=== PATIENT | male | born 1935 | race Caucasian/White ===

== ENCOUNTER 2016-10-21 20:21 | Emergency (ER) | payer OTHER, MEDICARE ==
[~2016-10-21] VITALS: Ht 177.8 cm; Wt 79.9 kg
[~2016-10-21 20:21] MED LIST: ASMANEX TW200 MICRO1 IH; ATENOLOL25 MG PO; AZITHROMYCIN500 M1 PO; BENZONATATE100 MG PO; BUDESONIDE0.5 MG/2 M IH; DUONEB 2.5-0.5 M3 ML IH; HYDROCHLOROTH12.5 M3 PO; HYDROCHLOROTHIA25 MG PO; LASIX20 MG PO; LATANOPROST2.5 ML BOTH EYES; LEVAQUIN500 MG PO; LEVOFLOXACIN750 MG PO; LISINOPRIL10 MG PO; METOLAZONE5 MG PO; MIRALAX17 GM PO; MIRALAX255 GM PO; PERCOCET 5/31 TABLET PO; POTASSIUM CHLO10 ME3 PO; PREDNISONE10 MG PO; PREDNISONE20 MG PO; PREDNISONE50 MG PO; PROAIR HFA8.5 GM IH; PROVENTIL HFA6.7 GM IH; PULMICORT0.5 MG/21 IH; SIMVASTATIN80 MG PO; SPIRIVA1 INHALATI IH; ST. JOSEPH ASPI81 MG PO; SYMBICORT60 INHALAT IH; TENORMIN50 MG PO; TYLENOL WITH C1 EACH PO; VITAMIN D PO; VITAMIN D1000 UNIT PO; VITAMIN D31000 UNI2 PO; ZITHROMAX Z-PA250 MG PO; ZITHROMAX250 MG PO
[2016-10-21 21:08] LABS: ADD MIUA? YES; BILIRUBIN NEGATIVE; BLOOD MODERATE; COLOR AMBER ((YELLOW)); GLUCOSE (STRIP) NEGATIVE; KETONES 5; LEUKOCYTES NEGATIVE; NITRITE NEGATIVE; PROTEIN (STRIP) 100; SPECIFIC GRAVITY 1.026 (1.000-1.030)
[2016-10-21 21:19] LABS: BACTERIA RARE /HPF; EPITHELIAL CELLS RARE /HPF; HYALINE CASTS 0-5 /LPF; MUCUS 2+ /LPF; RED BLOOD CELLS 30-40 /HPF (0-5); UCUL ADDED? NO; WHITE BLOOD CELLS 0-5 /HPF (0-5)
[2016-10-21 22:00] LABS: CHLORIDE 95 mEq/L (99-109); POTASSIUM 3.1 mEq/L (3.7-5.4); SODIUM 138 mEq/L (136-147)
[2016-10-21 22:02] LABS: GLUCOSE 131 mg/dL (70-99)
[2016-10-21 22:04] LABS: ANION GAP 8 MEQ/L (2-14)
[2016-10-21 22:06] LABS: GFR ESTIMATE (CALCULATED) > 59 mL/min/
[2016-10-21 22:07] LABS: UREA NITROGEN (BUN) 15 mg/dL (9-23)
[2016-10-21 22:12] LABS: TROP-I INTERPRETATION NEGATIVE; TROPONIN-I 0.01 ng/mL (0.0-0.30)
[2016-10-21 23:58] VITALS: BP 111/65
[2016-10-22] MEDS ORDERED: METOLAZONE2.5 MG PO (20:47)
[2016-10-22] MEDS ORDERED: MORPHINE CON20 MG/M1 PO (20:53)
[2016-10-22] MEDS ORDERED: SEROQUEL12.5 MG PO ×2 (20:55→21:14)
[2016-10-22] MEDS ORDERED: TYLENOL REGULA325 MG PO (20:57)
[2016-10-22] MEDS ORDERED: MUCINEX DM ER1 EACH PO (20:59)
[2016-10-22] MEDS ORDERED: SENNA PLUS TAB1 EACH PO (21:00)
[2016-10-22] MEDS ORDERED: VENTOLIN HFA18 GM IH (21:01)
[2016-10-22] MEDS ORDERED: ATIVAN1 MG PO (21:02)
[2016-10-22] MEDS ORDERED: ATIVAN0.5 MG PO (21:03)
[2016-10-22] MEDS ORDERED: TENORMIN50 MG PO (21:05)
[2016-10-22] MEDS ORDERED: DEPAKOTE250 MG PO (21:06)
== END 2016-10-21 23:58 ==
LOC: EDBD 20:21 → EME 20:21
PROVIDERS: Emergency Medicine
DX: R45.1 Restlessness and agitation (principal); R41.0 Disorientation, unspecified; F32.9 Major depressive disorder, single episode, unspecified; F03.90 Unspecified dementia, unspecified severity, without behavioral disturbance, psychotic disturbance, mood disturbance, and anxiety; J44.9 Chronic obstructive pulmonary disease, unspecified; E78.5 Hyperlipidemia, unspecified; Z79.82 Long term (current) use of aspirin; Z87.891 Personal history of nicotine dependence
CPT/HCPCS: 71010; 71020; 80048; 81003; 83605; 84484; 87040; 87086; 90839; 99281; 99285; J2060

== ENCOUNTER 2016-10-22 10:48 | Inpatient (IN) | payer OTHER, MEDICARE ==
[~2016-10-22] VITALS: Ht 180.3 cm; Wt 98.7 kg
[2016-10-22 12:20] LABS: ADD MIUA? YES; BILIRUBIN NEGATIVE; BLOOD MODERATE; COLOR YELLOW ((YELLOW)); GLUCOSE (STRIP) NEGATIVE; KETONES 5; LEUKOCYTES NEGATIVE; NITRITE NEGATIVE; PROTEIN (STRIP) 30; SPECIFIC GRAVITY 1.019 (1.000-1.030); UROBILINOGEN 0.2 MG/DL (0.2-1.0)
[2016-10-22 12:23] LABS: BACTERIA RARE /HPF; EPITHELIAL CELLS NONE SEEN /HPF; HYALINE CASTS 0-5 /LPF; MUCUS 2+ /LPF; RED BLOOD CELLS 20-30 /HPF (0-5); UCUL ADDED? NO; WHITE BLOOD CELLS 0-5 /HPF (0-5)
[2016-10-22 13:48] LABS: HEMATOCRIT 39.2 % (38.0-50.0); MCHC 32.4 G/DL (30.0-36.0); MCV 95.6 FL (86-99); PLATELET COUNT 188 K/uL (156-360); RBC DIS.WIDTH-CV 13.1 % (11.8-14.6); RBC DIS.WIDTH-SD 46.3 % (39-53); WHITE BLOOD COUNT 9.1 K/uL (4.1-10.2)
[2016-10-22 14:04] LABS: CHLORIDE 95 mEq/L (99-109); SODIUM 141 mEq/L (136-147)
[2016-10-22 14:05] LABS: GLUCOSE 134 mg/dL (70-99)
[2016-10-22 14:07] LABS: ANION GAP 14 MEQ/L (2-14)
[2016-10-22 14:09] LABS: GFR ESTIMATE (CALCULATED) > 59 mL/min/
[2016-10-22 14:10] LABS: UREA NITROGEN (BUN) 13 mg/dL (9-23)
[2016-10-22 14:14] LABS: TROP-I INTERPRETATION NEGATIVE; TROPONIN-I 0.02 ng/mL (0.0-0.30)
[2016-10-22 20:12] VITALS: BP 137/72
[2016-10-22] MEDS ORDERED: METOLAZONE2.5 MG PO (20:47)
[2016-10-22] MEDS ORDERED: MORPHINE CON20 MG/M1 PO (20:53)
[2016-10-22] MEDS ORDERED: SEROQUEL12.5 MG PO ×2 (20:55→21:14)
[2016-10-22] MEDS ORDERED: TYLENOL REGULA325 MG PO (20:57)
[2016-10-22] MEDS ORDERED: MUCINEX DM ER1 EACH PO (20:59)
[2016-10-22] MEDS ORDERED: SENNA PLUS TAB1 EACH PO (21:00)
[2016-10-22] MEDS ORDERED: VENTOLIN HFA18 GM IH (21:01)
[2016-10-22] MEDS ORDERED: ATIVAN1 MG PO (21:02)
[2016-10-22] MEDS ORDERED: ATIVAN0.5 MG PO (21:03)
[2016-10-22] MEDS ORDERED: TENORMIN50 MG PO (21:05)
[2016-10-22] MEDS ORDERED: DEPAKOTE250 MG PO (21:06)
[2016-10-23 07:39] VITALS: BP 150/68
[2016-10-23 16:13] VITALS: BP 159/67
[2016-10-25 08:08] VITALS: BP 126/61
[2016-10-25] MEDS ORDERED: AMLODIPINE BESYL5 MG PO (13:18)
== END 2016-10-25 13:27 | disposition hospice, home (50) | DRG 884 ==
LOC: EME 10:48 → EDOF 17:26 → 1WEST 17:26 → ENRESERV 20:09 → 1WEST 20:10 → ENRESERV 10-25 13:11 → 1WEST 10-25 13:27
PROVIDERS: Emergency Medicine
DX: F03.91 Unspecified dementia, unspecified severity, with behavioral disturbance (principal); Z91.19 Patient's noncompliance with other medical treatment and regimen; Z66 Do not resuscitate; I10 Essential (primary) hypertension; E11.9 Type 2 diabetes mellitus without complications; E78.5 Hyperlipidemia, unspecified; J44.9 Chronic obstructive pulmonary disease, unspecified; J96.11 Chronic respiratory failure with hypoxia; Z90.2 Acquired absence of lung [part of]; R06.00 Dyspnea, unspecified; Z51.5 Encounter for palliative care; Z99.81 Dependence on supplemental oxygen; M19.90 Unspecified osteoarthritis, unspecified site; R60.0 Localized edema; Z87.891 Personal history of nicotine dependence; Z87.01 Personal history of pneumonia (recurrent)
CPT/HCPCS: 71010; 80048; 81003; 84484; 85027; 90837; 90839; 92526 GN; 92610 GN; 93005; 94640; 94640 76; 94799; 99202; 99281; 99284; J2250

== ENCOUNTER 2016-10-25 15:22 | Inpatient (IN) | payer OTHER, MEDICARE ==
[~2016-10-25 15:22] MED LIST changes: +AMLODIPINE BESYL5 MG PO; +ATIVAN0.5 MG PO; +ATIVAN1 MG PO; +DEPAKOTE250 MG PO; +METOLAZONE2.5 MG PO; +MORPHINE CON20 MG/M1 PO; +MUCINEX DM ER1 EACH PO; +SENNA PLUS TAB1 EACH PO; +SEROQUEL12.5 MG PO; +TYLENOL REGULA325 MG PO; +VENTOLIN HFA18 GM IH
[2016-10-27 01:02] VITALS: BP 150/68
[2016-10-27] MEDS ORDERED: ATIVAN0.5 MG PO (14:03)
[2016-10-27] MEDS ORDERED: MORPHINE CON20 MG/M1 PO (14:03)
[2016-10-27] MEDS ORDERED: ATIVAN1 MG PO (14:03)
== END 2016-10-27 16:40 | disposition hospice, home (50) | DRG 884 ==
LOC: 5EAST 15:22 → ENPENDDIS 10-27 → EDPENDDISTM 10-27 15:45 → 5EAST 10-27 16:40
DX: F01.51 Vascular dementia, unspecified severity, with behavioral disturbance (principal); G93.40 Encephalopathy, unspecified; Z51.5 Encounter for palliative care; Z66 Do not resuscitate; E11.9 Type 2 diabetes mellitus without complications; E78.5 Hyperlipidemia, unspecified; F32.9 Major depressive disorder, single episode, unspecified; F41.9 Anxiety disorder, unspecified; I10 Essential (primary) hypertension; J44.9 Chronic obstructive pulmonary disease, unspecified; J96.11 Chronic respiratory failure with hypoxia; G89.29 Other chronic pain; M54.9 Dorsalgia, unspecified; M19.90 Unspecified osteoarthritis, unspecified site; Z99.81 Dependence on supplemental oxygen; Z79.82 Long term (current) use of aspirin; Z90.2 Acquired absence of lung [part of]; Z87.891 Personal history of nicotine dependence
CPT/HCPCS: 94640; 94640 76; 94799; 99202; J2270